=== PATIENT | female | born 1965 | race Caucasian/White ===

== ENCOUNTER → 2016-07-31 | Outpatient (CLI) | payer OTHER ==
[~2016-07-31] MED LIST: ACTONEL PO; ADVAIR 5001 DISK W/D PO; ALBUTEROL17 GM INH; ALPRAZOLAM PO; AMBIEN10 MG PO; ASPIRIN81 M2 PO; AVELOX400 MG; CALCIUM 500 + D1 TAB; CIPRO HC OTIC S10 ML OT; DEPAKOTE; DILANTIN PO; FIORICET W/CODE1 CAP; FIORICET1 TAB PO; FLORINEF ACETA0.1 MG PO; FOLIC ACID; HEARTBURN RELI150 M1 PO; IBUPROFEN800 MG PO; KEPPRA750 MG; KETOPROFEN PO; KLONOPIN; LAMICTAL XR200 MG PO; MACROBID100 M1 PO; NEURONTIN800 MG PO; OXYCODONE-ACET1 EAC1 PO; PERCOCET5/325 PO; PHENERGAN; PHENERGAN25 M1 PO; PRAVASTATIN SOD40 MG PO; REQUIP2 MG PO; RISPERDAL2 MG PO; VICODIN 5/1 TAB 5/50 PO; XANAX1 MG PO; ZITHROMAX PO
--- NOTE | ~2016-07-31 | CR7 ---
[facility] A Service of [facility] & [facility] RADIOLOGY TEXT RESULTS PATIENT: RUSSELL MCLEOD LOCATION: [facility] : 67 UNIT #: [id number] AGE: [address]: MISSAEL PEREZ NP SEX: F ORDER DR: [id number] [facility] [address] [place], [place] [address] [id number] O MR#: [id number] Acc #: [id number] NAME: RUSSELL MCLEOD : 1965 SEX: F STUDY DATE/TIME: 07/31/2016 12:40 UNIT: [facility] ROOM: STUDY DESCRIPTION: CR Abdomen Single AP View Attending Physician: Missael Perez Aprn Referring Physician: Missael Perez Aprn Ordering Physician: Physician Non-Staff Primary Care Physician: Max Varghese M.D. MEDICAL IMAGING REPORT This report is preliminary unless electronic signature is present EXAM AP of the abdomen 07/31/2016 INDICATIONS 51-year-old female with fecal incontinence for 2 months. COMPARISON STUDIES No comparisons. FINDINGS There is a large amount of stool in the colon which may indicate constipation. There is no dilated loops of small bowel. Surgical clips in the right upper quadrant. Band like artifact overlying the midabdomen likely external to the patient. IMPRESSION 1. No evidence of bowel obstruction. 2. Large stool burden may indicate constipation. Dictated by... Christopher French M.D. THIS IS AN ELECTRONICALLY VERIFIED REPORT Christopher French M.D. at 08/04/2016 8:37 AM Phillip TD: 07/31/2016 17:44 JOB #: [id number] MEDICAL IMAGING REPORT COPY
== END | disposition home or self-care (01) ==
LOC: CRAD 12:23
DX: R15.9 Full incontinence of feces (principal)
CPT/HCPCS: 74000

== ENCOUNTER 2016-09-04 23:30 | Emergency (ER) | payer OTHER ==
--- NOTE | ~2016-09-04 | CR63 ---
[facility] A Service of [facility] RADIOLOGY TEXT RESULTS PATIENT: RUSSELL MCLEOD LOCATION: SED : 67 UNIT #: [id number] AGE: [address]: SILAS VILLALTA SEX: F ORDER DR: [id number] [place] [id number] MR#: [id number] Acc #: [id number] NAME: RUSSELL MCLEOD : 1965 SEX: F STUDY DATE/TIME: 09/05/2016 1:38 UNIT: SED ROOM: STUDY DESCRIPTION: CR Chest 2 View Attending Physician: Silas Villalta Ordering Physician: Silas Villalta Primary Care Physician: Max Varghese M.D. MEDICAL IMAGING REPORT This report is preliminary unless electronic signature is present. EXAM PA and lateral chest INDICATIONS Cough, congestion and fatigue for 3 days. COMPARISON 02/16/2008 FINDINGS A PA and lateral view of the chest were obtained. The lungs are clear, except for a possible faint density measuring about 8-9 mm in diameter superimposed upon the right eighth rib. This was not identified on the old study from 2007. Lungs are slightly hyperinflated. The bones are normal and the heart size is normal. IMPRESSION There may be a subtle new density in the right lung laterally measuring about 8 mm in diameter. The most recent study is from 2007 and this area appeared clear at that time. I would suggest a CT scan of the chest without contrast to determine if there is a pulmonary nodule present. Otherwise, there is no active disease. Dictated by... Milan Rainey M.D. THIS IS AN ELECTRONICALLY VERIFIED REPORT Milan Rainey M.D. at 09/05/2016 5:05 AM F[facility] A Service [facility] RADIOLOGY TEXT RESULTS PATIENT: RUSSELL MCLEOD LOCATION: SED : 67 UNIT #: [id number] AGE: [address]: SILAS VILLALTA SEX: F ORDER DR: TD: 09/05/2016 03:43 JOB #: [id number] MEDICAL IMAGING REPORT Page 1 of 1
[2016-09-05 05:40] LABS: INFLUENZA A NEG (NEG); INFLUENZA B NEG (NEG)
== END 2016-09-05 02:08 | disposition home or self-care (01) ==
LOC: SED 23:30
PROVIDERS: Nurse Practitioner
DX: J02.0 Streptococcal pharyngitis (principal); J44.9 Chronic obstructive pulmonary disease, unspecified; F17.210 Nicotine dependence, cigarettes, uncomplicated; Z90.710 Acquired absence of both cervix and uterus; Z90.49 Acquired absence of other specified parts of digestive tract; Z88.0 Allergy status to penicillin
CPT/HCPCS: 71020; 87804; 87880; 94640; 99283